=== PATIENT | female | born 1995 | race Caucasian/White ===

== ENCOUNTER 2017-10-02 21:18 | Emergency (ER) | payer MEDICAID ==
[~2017-10-02] VITALS: Ht 165.1 cm; Wt 50.0 kg
[2017-10-02] MEDS: PENICILLIN G BENZATHINE LA 1,200,000 UNITS/2 ML SYRINGE IM ONE (22:13)
[2017-10-02] MEDS: DEXAMETHASONE SOD PHOS 4 MG/ML 5 ML VIAL IM ONE (22:14)
[2017-10-02] MEDS: ACETAMINOPHEN 500 MG TABLET PO ONE (22:14)
[2017-10-02 22:33] VITALS: BP 110/71
== END 2017-10-02 22:35 | disposition home or self-care (01) ==
LOC: EMS 21:19
DX: J02.0 Streptococcal pharyngitis (principal)
CPT/HCPCS: 81025; 96372; 99284; J0561; J1100